=== PATIENT | female | born 1950 | race Caucasian/White ===

== ENCOUNTER 2018-09-10 06:32 | Day surgery (SDC) | payer OTHER ==
[~2018-09-10 06:32] MED LIST: AVAPRO300 MG PO; CARDURA1 MG PO; PROPANALOL PO; SYNTHROID50 MCG PO
== END 2018-09-10 16:55 | disposition home or self-care (01) ==
LOC: CIR.AMB 06:32
DX: D18.09 Hemangioma of other sites (principal)